=== PATIENT | female | born 1965 | race American Indian/Alaskan Native ===

== ENCOUNTER 2018-12-01 22:07 | Emergency (ER) | payer SELFPAY ==
[~2018-12-01] VITALS: Ht 157.5 cm; Wt 79.4 kg
[~2018-12-01 22:07] MED LIST: ADVIL200 MG PO; CLINDAMYCIN HC300 MG PO; HYDROCODON-ACE1 EAC8 PO; RANITIDINE HCL150 M1 PO; ZOFRAN ODT4 MG SL
== END 2018-12-02 00:56 | disposition home or self-care (01) ==
LOC: ED 22:07
DX: S00.03XA Contusion of scalp, initial encounter (principal); S80.211A Abrasion, right knee, initial encounter; F17.200 Nicotine dependence, unspecified, uncomplicated; Y04.0XXA Assault by unarmed brawl or fight, initial encounter
CPT/HCPCS: 73130; 73560; 99284

== ENCOUNTER 2020-10-20 11:08 | Observation (INO) | payer OTHER ==
[~2020-10-20] VITALS: Ht 157.5 cm; Wt 82.5 kg
--- NOTE | 2020-10-20 14:45 | NUR ---
PT ARRIVED FROM ER. PT ON ROOM AIR, LUNG SOUNDS CLEAR. BOWEL TONES ACTIVE, PT WITH NAUSEA AND DRY HEAVING. IV FLUIDS INFUSING NS+20MEQ K AT 250ML/HR. PT DENIES PAIN. CMS INTACT, WITHOUT EDEMA. ADMISSION INTAKE COMPLETED. PT DENIES OTHER NEEDS AT THIS TIME.
--- NOTE | 2020-10-20 15:44 | NUR ---
PT RESTING IN BED. GIVEN COMPAZINE PER ORDER FOR NAUSEA. PT DENIES OTHER NEEDS AT THIS TIME.
--- NOTE | 2020-10-20 18:04 | NUR ---
PT ADMITTED THIS AFTERNOON FROM ER. PT ON ROOM AIR, LUNG SOUNDS CLEAR. PT WITH NAUSEA, IMPROVED AFTER COMPAZINE. PT SBA TO BATHROOM, VOIDING QS. STOOL SAMPLE NEEDED.
[2020-10-20] MEDS ORDERED: PEPCID20 MG PO (18:18)
--- NOTE | 2020-10-20 18:18 | NUR ---
MED REC COMPLETE
--- NOTE | 2020-10-20 19:23 | NUR ---
PATIENT AWAKE IN BED, VITALS AND I&OS CHARTED. FRESH ICE WATER PROVIDED, CALL LIGHT IN REACH
--- NOTE | 2020-10-20 20:15 | NUR ---
CR[facility] [employer]LLOWER ROUNDING NOTE. PT RESTING IN BED WITH LAB AT BEDSIDE. PT DENIES QUESTIONS, CONCERNS, OR NEEDS AT THIS TIME. CALL LIGHT IN REACH. WHITE BOARD UPDATED.
--- NOTE | 2020-10-20 23:23 | NUR ---
RESTING, NO C/O N/V OR DRY HEAVING, AWARE OF NEED TO GET A STOOL SAMPLE.
--- NOTE | 2020-10-21 00:41 | NUR ---
resting, repositions self in bed, IVF infusing, no n/v, aware of need for stool sample
--- NOTE | 2020-10-21 02:28 | NUR ---
AWAKES EASILY, NO C/O N/V, IVF INFUSING W/O PROBLEMS
--- NOTE | 2020-10-21 03:25 | NUR ---
pt had 25cc of yellow looking oral emeis, medicated with Zofran 4mg IV, up to br, no bm, no void
--- NOTE | 2020-10-21 04:40 | NUR ---
Pt has slept mos of this shift. Had small amount of emesis, medicated with Zofran, effective. No BM this shift. Pt aware of need to get stool sample. has been voiding QS. IVF infusing w/o problems. SBA when getting up to br. tolerating ice chips and clear fluids. Respositions self in bed. Alert, oriented, on room air
--- NOTE | 2020-10-21 06:43 | NUR ---
No further c/o dry heaving or n/v. no c/o pain, no bm this shift, voided QS . Tolerating clear liquids
--- NOTE | 2020-10-21 07:46 | NUR ---
this rn received report from nilay conrad. pt apprears to be resting at this time but awakens when this rn comes in. pt states she needs nothing at this time
--- NOTE | 2020-10-21 08:50 | NUR ---
this rn in pts room to give pt her morning meds. pt states that she is going to get in the shower for comfort, stating that she has some nausea. this rn asked if pt smokes marijuana, pt stated that she does once in awhile and stopped shortly before feeling bad. this rn discussed that this could be contributing to her nausea. pt stated that she will let this rn know if she needs nausea meds
[2020-10-21] MEDS ORDERED: ONDANSETRON ODT4 MG SL (13:06)
[2020-10-21] MEDS ORDERED: AMLODIPINE BESYL5 MG PO (13:07)
[2020-10-21] MEDS ORDERED: PROTONIX40 MG PO (13:07)
--- NOTE | 2020-10-21 19:05 | EKG ---
[facility] [address] [facility] [place], [place] [address] Signed Normal sinus rhythm ST \T\ T wave abnormality, consider inferior ischemia Abnormal ECG No previous ECGs available Confirmed by RUSS BARROS DO ([id number]) on 10/21/2020 7:05:30 PM Electronically Signed By: RUSS BARROS DO 10/21/20 1905 PATIENT NAME: HARSHA ABRAHAMYENIFER Harris Electrocardiogram DATE OF : 63 PHYSICIAN: RUSS BARROS DO REPORT #: [id number] REPORT IS CONFIDENTIAL AND NOT TO BE RELEASED WITHOUT AUTHORIZATION
== END 2020-10-21 15:05 | disposition home or self-care (01) ==
LOC: ED 11:08 → MS 13:57
PROVIDERS: ADMIT Internal Medicine; ATTEND Internal Medicine
DX: K52.9 Noninfective gastroenteritis and colitis, unspecified (principal); E87.6 Hypokalemia; I10 Essential (primary) hypertension; K21.9 Gastro-esophageal reflux disease without esophagitis; E86.0 Dehydration; F17.200 Nicotine dependence, unspecified, uncomplicated; Z20.822 Contact with and (suspected) exposure to COVID-19
CPT/HCPCS: 71045; 93005; 93010; C9113; C9803; J0780; J1650; J2405; J2550; J3480; J7030; J7121

== ENCOUNTER 2021-01-21 10:19 | Emergency (ER) | payer OTHER ==
[~2021-01-21] VITALS: Ht 157.5 cm; Wt 82.1 kg
[~2021-01-21 10:19] MED LIST changes: +AMLODIPINE BESYL5 MG PO; +ONDANSETRON ODT4 MG SL; +PEPCID20 MG PO; +PROTONIX40 MG PO
[2021-01-21] MEDS ORDERED: ONDANSETRON ODT8 MG PO (15:37)
[2021-01-21] MEDS ORDERED: K-TAB ER20 MEQ PO (15:37)
--- NOTE | 2021-01-21 21:10 | EKG ---
[facility] [address] [facility] [place], [place] [address] Signed Normal sinus rhythm Right atrial enlargement Nonspecific ST abnormality Abnormal ECG When compared with ECG of 20-OCT-2020 11:11, T wave inversion less evident in Inferior leads T wave amplitude has increased in Anterolateral leads Confirmed by RUSS BARROS DO ([id number]) on 01/21/2021 9:09:53 PM Electronically Signed By: RUSS BARROS DO 01/21/212109 PATIENT NAME: SIRIA ABRAHAM SANDRA Electrocardiogram DATE OF : 63 PHYSICIAN: RUSS BARROS DO REPORT #: [id number] REPORT IS CONFIDENTIAL AND NOT TO BE RELEASED WITHOUT AUTHORIZATION
[2021-01-22] MEDS ORDERED: PROCHLORPERAZIN10 MG PO (15:54)
== END 2021-01-21 16:36 | disposition home or self-care (01) ==
LOC: ED 10:19
DX: K29.00 Acute gastritis without bleeding (principal); E87.6 Hypokalemia; I10 Essential (primary) hypertension; Z87.891 Personal history of nicotine dependence; Z79.899 Other long term (current) drug therapy
CPT/HCPCS: 80053; 81001; 83690; 83735; 85025; 93005; 93010; 96374; 96375; 96376; 99285-25; J2060; J2405; J3480; J7030; J7060

== ENCOUNTER 2021-01-22 13:55 | Emergency (ER) | payer OTHER ==
[~2021-01-22] VITALS: Ht 157.5 cm; Wt 81.7 kg
[~2021-01-22 13:55] MED LIST changes: +K-TAB ER20 MEQ PO; +ONDANSETRON ODT8 MG PO
--- OUTSIDE RECORDS SUMMARY | 2021-01-22 13:58 | XMS ---
PreManage Notification: SIRIA ABRAHAM [employer] Events No recent Security Events currently on file CRITERIA MET - [facility] - 2 Visits in 30 Days CARE PROVIDERS There are no care providers on record at this time. Dennis has no Care Guidelines for this patient. [facility] MO[facility] NOTE: Visits indicate total known visits. ED/C VISIT TRACKING (12 MO.) [facility] COMPLAINT: - ABDOMINAL PAIN/NAUSEA 01/21/2021 10:20 [facility] TYPE: Emergency COMPLAINT: - ABDOMINAL PAIN/NAUSEA 10/20/2020 11:08 [facility] [place] TYPE: Emergency COMPLAINT: - CHEST PAIN INPATIENT VISIT TRACKING (12 MO.) 10/20/2020 13:57 [facility] [place] TYPE: Observation COMPLAINT: - HYPOKALEMIA/GE DIAGNOSES: - Gastro-esophageal reflux disease without esophagitis - Noninfective gastroenteritis and colitis, unspecified - Dehydration - Nicotine dependence, unspecified, uncomplicated - Essential (primary) hypertension - Hypokalemia [email or web address]
[2021-01-22] MEDS ORDERED: PROCHLORPERAZIN10 MG PO (15:54)
== END 2021-01-22 15:58 | disposition home or self-care (01) ==
LOC: ED 13:55
DX: K29.00 Acute gastritis without bleeding (principal); I10 Essential (primary) hypertension; Z79.899 Other long term (current) drug therapy
CPT/HCPCS: 80053; 83690; 85025; 96374; 99284-25; J1790; J7030

== ENCOUNTER 2021-05-02 13:52 | Emergency (ER) | payer OTHER ==
[~2021-05-02] VITALS: Ht 157.5 cm; Wt 81.7 kg
[~2021-05-02 13:52] MED LIST changes: +PROCHLORPERAZIN10 MG PO
[2021-05-02] MEDS ORDERED: REGLAN10 MG PO (21:21)
[2021-05-02] MEDS ORDERED: HIGH POTENCY42.5 GM TOP (21:25)
--- NOTE | 2021-05-03 15:49 | EKG ---
[facility] [address] [facility] [place] [address] Signed Normal sinus rhythm with sinus arrhythmia Nonspecific ST abnormality Prolonged QT Abnormal ECG When compared with ECG of 21-JAN-2021 10:33, No significant change was found Confirmed by BONG GENTILE MD ([id number]) on 05/03/2021 3:49:19 PM Electronically Signed By: BONG GENTILE MD 05/03/21 1549 PATIENT NAME: SIRIA ABRAHAM SANDRA Electrocardiogram DATE OF : 63 PHYSICIAN: BONG GENTILE MD REPORT #: [id number] REPORT IS CONFIDENTIAL AND NOT TO BE RELEASED WITHOUT AUTHORIZATION
== END 2021-05-02 21:30 | disposition home or self-care (01) ==
LOC: ED 13:52
DX: R11.15 Cyclical vomiting syndrome unrelated to migraine (principal); E83.42 Hypomagnesemia; E87.6 Hypokalemia; I10 Essential (primary) hypertension
CPT/HCPCS: 80053; 81001; 83690; 83735; 84484; 85025; 93005; 93010; 96374; 96375; 99284-25; J1790; J2405; J7030; J7121

== ENCOUNTER 2022-02-02 20:45 | Emergency (ER) | payer OTHER ==
[~2022-02-02] VITALS: Ht 157.5 cm; Wt 81.7 kg
[~2022-02-02 20:45] MED LIST changes: +HIGH POTENCY42.5 GM TOP; +REGLAN10 MG PO
[2022-02-02] MEDS ORDERED: ONDANSETRON ODT8 MG PO (23:12)
[2022-02-02] MEDS ORDERED: ULTRAM50 MG PO (23:12)
== END 2022-02-02 23:50 | disposition home or self-care (01) ==
LOC: ED 20:45
DX: K52.9 Noninfective gastroenteritis and colitis, unspecified (principal); Q43.3 Congenital malformations of intestinal fixation; I10 Essential (primary) hypertension
CPT/HCPCS: 36415; 74177; 80053; 81001; 83690; 83735; 85025; 96361; 96375; 99284-25; A9270; J2270; J2405; J7030; Q9967

== ENCOUNTER 2024-04-23 14:26 | Emergency (ER) | payer OTHER ==
[~2024-04-23] VITALS: Ht 157.5 cm; Wt 72.8 kg
[~2024-04-23 14:26] MED LIST changes: +BENADRYL25 MG PO; +ULTRAM50 MG PO
[2024-04-23] MEDS ORDERED: SODIUM CHLORIDE 0.9% 1,000 ML IV ONE (14:45)
[2024-04-23] MEDS ORDERED: ondansetron HCL 4 MG/2 ML VIAL IV ONE (14:45)
[2024-04-23] MEDS ORDERED: PANTOPRAZOLE SODIUM 40 MG/10 ML VIAL IV ONE (14:45)
[2024-04-23 15:01] LABS: PH, VENOUS 7.632 (7.31-7.41)
[2024-04-23 15:03] LABS: BASOPHILS 0.2 % (0-2); EOSINOPHILS 0.2 % (0-6); HEMATOCRIT 47.6 % (35.0-50.0); HEMOGLOBIN 16.1 g/dL (12.0-18.0); LYMPHOCYTES 12.5 % (24-44); MCH 30.2 (27-36); MCHC 33.8 g/dl (30-36); MCV 89.4 fl (81-99); MONOCYTES 4.9 % (0-12); NEUTROPHILS 82.2 % (39-80); PLATELET COUNT 307 K/uL (140-440); RBC 5.33 M/ul (4.3-5.7); RDW 13.5 (10.5-15.0)
[2024-04-23 15:22] LABS: ALBUMIN 4.7 g/dL (3.4-5.0); ALBUMIN/GLOBULIN RATIO 1.15 (1.1-2.4); ANION GAP 22.9 (7-21); BILIRUBIN, TOTAL 0.8 ng/dL (0.2-1.0); BUN/CREATININE RATIO 21.05 (6.0-28.6); CALCIUM 10.5 mg/dL (8.5-10.1); CREATININE, SERUM 1.14 mg/dL (0.55-1.02); POTASSIUM 2.9 mmol/L (3.5-5.1); PROTEIN, TOTAL 8.8 g/dL (6.4-8.2)
[2024-04-23 15:26] LABS: LACTIC ACID, BLOOD 4.7 mmol/L (0.4-2.0)
[2024-04-23] MEDS ORDERED: SODIUM CHLORIDE 0.9% 1,000 ML IV PRN (16:15)
[2024-04-23] MEDS ORDERED: COMPAZINE25 MG PR (17:48)
[2024-04-23] MEDS ORDERED: POTASSIUM CHLORIDE 20 MEQ/15 ML CUP PO ONE (18:00)
[2024-04-23 18:10] VITALS: BP 145/85
== END 2024-04-23 18:10 | disposition home or self-care (01) ==
LOC: ED 14:26
PROVIDERS: Emergency Medicine
DX: R10.13 Epigastric pain (principal); R11.2 Nausea with vomiting, unspecified; I10 Essential (primary) hypertension; Z79.899 Other long term (current) drug therapy
CPT/HCPCS: 36415; 80053; 80307; 82803; 83605; 83690; 85025; 96361; 96374; 96375; 99284-25; A9270; J2405; J2470; J7030

== ENCOUNTER 2024-05-13 19:09 | Emergency (ER) | payer OTHER ==
[~2024-05-13] VITALS: Ht 157.5 cm; Wt 122.8 kg
[~2024-05-13 19:09] MED LIST changes: +COMPAZINE25 MG PR; +PEPCID AC20 MG PO
[2024-05-13] MEDS ORDERED: COMPRO25 MG PR (20:08)
[2024-05-13] MEDS ORDERED: ondansetron HCL 4 MG/2 ML VIAL IV ONE (20:15)
[2024-05-13 20:16] LABS: BASOPHILS 0.4 % (0-2); EOSINOPHILS 0.1 % (0-6); HEMATOCRIT 43.3 % (35.0-50.0); HEMOGLOBIN 14.5 g/dL (12.0-18.0); MCH 30.3 (27-36); MCHC 33.5 g/dl (30-36); MCV 90.5 fl (81-99); MONOCYTES 4.6 % (0-12); NEUTROPHILS 84.9 % (39-80); PLATELET COUNT 276 K/uL (140-440); RBC 4.78 M/ul (4.3-5.7); RDW 13.2 (10.5-15.0)
[2024-05-13 20:20] LABS: BILIRUBIN, URINE NEGATIVE (negative); BLOOD/HGB, URINE LARGE (Negative); KETONE, URINE NEGATIVE (Negative); LEUK ESTERASE, URINE NEGATIVE (negative); NITRITE, URINE NEGATIVE (negative)
[2024-05-13 20:31] LABS: CRYSTALS, URINE NONE SEEN (0-1+); EPITHELIAL CELLS, URINE SQUAMOUS 1+ /lpf (0-1+); RED BLOOD CELLS, URINE >50 /hpf (0-5); WHITE BLOOD CELLS, URINE 0-1 /HPF (0-5)
[2024-05-13 20:32] LABS: BACTERIA, URINE RARE /hpf (negative); CASTS, URINE NONE SEEN \\lpf; COLLECTION TYPE, URINE CLEAN CATCH; REFLEX CULTURE, URINE No (No)
[2024-05-13 20:37] LABS: ALBUMIN 4.5 g/dL (3.4-5.0); ALBUMIN/GLOBULIN RATIO 1.22 (1.1-2.4); ANION GAP 18.1 (7-21); BILIRUBIN, TOTAL 0.4 ng/dL (0.2-1.0); BUN/CREATININE RATIO 15.62 (6.0-28.6); CALCIUM 9.7 mg/dL (8.5-10.1); CREATININE, SERUM 0.96 mg/dL (0.55-1.02); MAGNESIUM 1.4 mg/dL (1.8-2.4); POTASSIUM 3.1 mmol/L (3.5-5.1); PROTEIN, TOTAL 8.2 g/dL (6.4-8.2)
[2024-05-13 20:49] LABS: AMPHETAMINES, URINE NEGATIVE (NEGATIVE); BARBITURATES, URINE NEGATIVE (NEGATIVE); BENZODIAZEPINE, URINE NEGATIVE (NEGATIVE); BUPRENORPHINE, URINE NEGATIVE (NEGATIVE); CANNABINOID, URINE POSITIVE (NEGATIVE); COCAINE, URINE NEGATIVE (NEGATIVE); ECSTASY, URINE NEGATIVE (NEGATIVE); FENTANYL, URINE NEGATIVE (NEGATIVE); METHADONE, URINE NEGATIVE (NEGATIVE); OPIATES, URINE NEGATIVE (NEGATIVE); OXYCODONE, URINE NEGATIVE (NEGATIVE); PHENCYCLIDINE, URINE NEGATIVE (NEGATIVE)
[2024-05-13] MEDS ORDERED: KETOROLAC TROMETHAMINE 30 MG/ML VIAL IV ONE (22:00)
[2024-05-13] MEDS ORDERED: SODIUM CHLORIDE 0.9% 1,000 ML IV SCH (22:00)
[2024-05-13] MEDS ORDERED: METOCLOPRAMIDE HCL 10 MG/2 ML SDV IV ONE (22:45)
[2024-05-13] MEDS ORDERED: ONDANSETRON ODT8 MG PO (23:04)
[2024-05-13] MEDS ORDERED: ONDANSETRON 4 MG HOME.PACK SL ONE (23:15)
[2024-05-13] MEDS ORDERED: PROMETHAZINE HCL 25 MG HOME.PACK PO ONE (23:15)
[2024-05-13] MEDS ORDERED: PROMETHAZINE HCL 25 MG SUPP. HOME.PACK PR ONE (23:15)
[2024-05-13 23:24] VITALS: BP 162/86
== END 2024-05-13 23:25 | disposition home or self-care (01) ==
LOC: ED 19:09
PROVIDERS: Emergency Medicine
DX: K29.00 Acute gastritis without bleeding (principal); R31.9 Hematuria, unspecified; N20.0 Calculus of kidney; I10 Essential (primary) hypertension; Z79.899 Other long term (current) drug therapy
CPT/HCPCS: 36415; 74176; 80053; 80307; 81001; 83690; 83735; 85025; 96361; 96374; 96375; 99284; A9270; J1885; J2405; J2765; J7030

== ENCOUNTER 2024-05-22 15:29 | Observation (INO) | payer OTHER ==
[~2024-05-22] VITALS: Ht 157.5 cm; Wt 73.3 kg
[~2024-05-22 15:29] MED LIST changes: +COMPRO25 MG PR
[2024-05-22] MEDS ORDERED: PANTOPRAZOLE SODIUM 40 MG/10 ML VIAL IV ONE (16:30)
[2024-05-22] MEDS ORDERED: ondansetron HCL 4 MG/2 ML VIAL IV ONE (16:30)
[2024-05-22] MEDS ORDERED: HYDROmorphone HCL 1 MG/ML SYR IV ONE (16:30)
[2024-05-22] MEDS ORDERED: SODIUM CHLORIDE 0.9% 1,000 ML IV ONE (16:30)
[2024-05-22 16:39] LABS: BASOPHILS 0.4 % (0-2); HEMOGLOBIN 16.8 g/dL (12.0-18.0); LYMPHOCYTES 18.8 % (24-44); MCH 31.2 (27-36); MCHC 35.8 g/dl (30-36); MCV 87.1 fl (81-99); MONOCYTES 8.3 % (0-12); NEUTROPHILS 72.5 % (39-80); PLATELET COUNT 342 K/uL (140-440); RDW 12.9 (10.5-15.0)
[2024-05-22 16:53] LABS: ALBUMIN 4.4 g/dL (3.4-5.0); ALBUMIN/GLOBULIN RATIO 1.07 (1.1-2.4); ANION GAP 15.4 (7-21); BILIRUBIN, TOTAL 0.9 ng/dL (0.2-1.0); BUN/CREATININE RATIO 21.16 (6.0-28.6); CALCIUM 10.6 mg/dL (8.5-10.1); CREATININE, SERUM 1.37 mg/dL (0.55-1.02); PROTEIN, TOTAL 8.5 g/dL (6.4-8.2)
[2024-05-22 16:58] LABS: POTASSIUM 2.4 mmol/L (3.5-5.1)
[2024-05-22] MEDS ORDERED: POTASSIUM CHLORIDE 10 MEQ/100 ML BAG IV ONE ×2 (17:15→23:45)
[2024-05-22] MEDS ORDERED: SODIUM CHLORIDE 0.9% 1,000 ML IV PRN (18:00)
[2024-05-22 18:05] LABS: BILIRUBIN, URINE NEGATIVE (negative); BLOOD/HGB, URINE MODERATE (Negative); KETONE, URINE NEGATIVE (Negative); LEUK ESTERASE, URINE NEGATIVE (negative); NITRITE, URINE NEGATIVE (negative)
[2024-05-22 18:11] LABS: EPITHELIAL CELLS, URINE SQUAMOUS 2+ /lpf (0-1+)
[2024-05-22 18:18] LABS: BACTERIA, URINE RARE /hpf (negative); CRYSTALS, URINE CALCIUM OXALATE 1+ (0-1+)
[2024-05-22 18:19] LABS: CASTS, URINE NONE SEEN \\lpf; COLLECTION TYPE, URINE CLEAN CATCH; REFLEX CULTURE, URINE No (No)
[2024-05-22] MEDS ORDERED: PROCHLORPERAZINE EDISYLATE 10 MG/2 ML VIAL IV PRN (19:00)
[2024-05-22] MEDS ORDERED: ACETAMINOPHEN 325 MG TAB PO PRN (19:00)
[2024-05-22] MEDS ORDERED: ondansetron HCL 4 MG/2 ML VIAL IV PRN (19:00)
[2024-05-22] MEDS ORDERED: LACTATED RINGER'S 1,000 ML IV SCH (19:00)
[2024-05-22] MEDS ORDERED: POTASSIUM CHLORIDE 10 MEQ/100 ML BAG IV SCH (19:15)
[2024-05-22 19:44] LABS: AMPHETAMINES, URINE NEGATIVE (NEGATIVE); BARBITURATES, URINE NEGATIVE (NEGATIVE); BENZODIAZEPINE, URINE NEGATIVE (NEGATIVE); BUPRENORPHINE, URINE NEGATIVE (NEGATIVE); CANNABINOID, URINE POSITIVE (NEGATIVE); COCAINE, URINE NEGATIVE (NEGATIVE); ECSTASY, URINE NEGATIVE (NEGATIVE); FENTANYL, URINE NEGATIVE (NEGATIVE); METHADONE, URINE NEGATIVE (NEGATIVE); OPIATES, URINE POSITIVE (NEGATIVE); OXYCODONE, URINE NEGATIVE (NEGATIVE); PHENCYCLIDINE, URINE NEGATIVE (NEGATIVE)
[2024-05-22 20:27] VITALS: BP 129/77
[2024-05-22] MEDS ORDERED: MELATONIN 3 MG TAB PO PRN (21:00)
[2024-05-22 21:58] VITALS: BP 129/77
[2024-05-23] VITALS (12 sets, daily range): BP systolic 106–127; BP diastolic 69–87
[2024-05-23 05:17] LABS: BASOPHILS 3.7 % (0-2); EOSINOPHILS 1.7 % (0-6); HEMATOCRIT 40.1 % (35.0-50.0); HEMOGLOBIN 13.7 g/dL (12.0-18.0); LYMPHOCYTES 27.8 % (24-44); MCH 30.6 (27-36); MCHC 34.1 g/dl (30-36); MCV 89.7 fl (81-99); MONOCYTES 8.3 % (0-12); NEUTROPHILS 58.5 % (39-80); PLATELET COUNT 251 K/uL (140-440); RBC 4.47 M/ul (4.3-5.7); RDW 12.6 (10.5-15.0)
[2024-05-23 05:41] LABS: ALBUMIN 3.2 g/dL (3.4-5.0); ALBUMIN/GLOBULIN RATIO 1.07 (1.1-2.4); ANION GAP 9.8 (7-21); BILIRUBIN, TOTAL 0.9 ng/dL (0.2-1.0); BUN/CREATININE RATIO 25.67 (6.0-28.6); CALCIUM 9.1 mg/dL (8.5-10.1); CREATININE, SERUM 0.74 mg/dL (0.55-1.02); MAGNESIUM 1.9 mg/dL (1.8-2.4); PHOSPHORUS, INORGANIC 3.5 mg/dL (2.5-4.9); POTASSIUM 2.8 mmol/L (3.5-5.1); PROTEIN, TOTAL 6.2 g/dL (6.4-8.2)
[2024-05-23] MEDS ORDERED: POTASSIUM CHLORIDE 40 MEQ,LIDOCAINE HCL 1% 40 MG in DEXTROSE 5% 250 ML IV ONE ×2 (08:30→17:15)
[2024-05-23] MEDS ORDERED: PANTOPRAZOLE SODIUM 40 MG/10 ML VIAL IV SCH (09:00)
[2024-05-23] MEDS ORDERED: PHARMACY RENAL DOSE ADJUSTMENT 1 DOSE MISC PO SCH (12:00)
[2024-05-23 14:17] LABS: BUN/CREATININE RATIO 17.07 (6.0-28.6); CALCIUM 8.7 mg/dL (8.5-10.1); CREATININE, SERUM 0.82 mg/dL (0.55-1.02)
[2024-05-23] MEDS ORDERED: POTASSIUM CHLORIDE 10 MEQ/100 ML BAG IV SCH ×2 (18:00→18:15)
[2024-05-24] VITALS (8 sets, daily range): BP systolic 111–144; BP diastolic 66–89
[2024-05-24 06:31] LABS: BASOPHILS 0.7 % (0-2); EOSINOPHILS 2.7 % (0-6); HEMATOCRIT 39.3 % (35.0-50.0); HEMOGLOBIN 13.5 g/dL (12.0-18.0); LYMPHOCYTES 41.6 % (24-44); MCH 30.9 (27-36); MCHC 34.4 g/dl (30-36); MCV 89.7 fl (81-99); MONOCYTES 9.3 % (0-12); NEUTROPHILS 45.7 % (39-80); PLATELET COUNT 241 K/uL (140-440); RBC 4.38 M/ul (4.3-5.7)
[2024-05-24 06:43] LABS: ANION GAP 12.8 (7-21); BUN/CREATININE RATIO 17.24 (6.0-28.6); CALCIUM 8.7 mg/dL (8.5-10.1); CREATININE, SERUM 0.58 mg/dL (0.55-1.02); MAGNESIUM 1.8 mg/dL (1.8-2.4); POTASSIUM 3.8 mmol/L (3.5-5.1)
--- NOTE | 2024-05-24 07:51 | EKG ---
[facility] [address] [facility] [place] [address] Signed Normal sinus rhythm Cannot rule out Anterior infarct , age undetermined Prolonged QT Abnormal ECG When compared with ECG of 19-NOV-2023 10:39, T wave inversion in V2 is no longer present Confirmed by Dianna Villareal MD () on 05/24/2024 7:51:12 AM Electronically Signed By: DIANNA VILLAREAL MD 05/24/24 0751 PATIENT NAME: SIRIA ABRAHAM SANDRA Electrocardiogram DATE OF : 63 PHYSICIAN: DIANNA VILLAREAL MD REPORT #: [id number] REPORT IS CONFIDENTIAL AND NOT TO BE RELEASED WITHOUT AUTHORIZATION
[2024-05-24] MEDS ORDERED: BENADRYL25 MG PO (12:27)
== END 2024-05-24 14:37 | disposition home or self-care (01) ==
LOC: ED 15:29 → MS 15:30
PROVIDERS: Emergency Medicine; ADMIT Family Medicine; ATTEND Family Medicine
DX: E87.6 Hypokalemia (principal); R11.2 Nausea with vomiting, unspecified; N17.9 Acute kidney failure, unspecified; F12.90 Cannabis use, unspecified, uncomplicated; I10 Essential (primary) hypertension; K21.9 Gastro-esophageal reflux disease without esophagitis; Z79.899 Other long term (current) drug therapy
CPT/HCPCS: 36415; 74177; 80048; 80053; 80307; 81001; 83690; 83735; 84100; 85025; 93005; 93010; 96366; 96375; 96376; 99285-25; G0378; J2405; J2470; J3480; J3490; J7030; J7060; J7121; Q9967